=== PATIENT | male | born 1940 | race Caucasian/White ===

== ENCOUNTER 2017-08-05 05:38 | Day surgery (SDC) | payer MEDICARE, OTHER ==
[2017-08-05 08:26] LABS: Color Of CSF Supernatant COLORLESS (Colorless); Tube # 2; Unspun CSF Color COLORLESS (Colorless)
[2017-08-05 08:33] LABS: CSF Source CSF; Clarity Clear (Clear); RBC Count - Manual 1 /cumm (None Seen); Tube # 4; WBC/NonHematics Count - Manual 1 /cumm (0-5)
[2017-08-05 08:43] LABS: CSF, Glucose 63 mg/dl (40-70); CSF, Protein 33 mg/dL (15-40)
--- NOTE | 2017-08-05 08:52 | OP ---
DATE OF PROCEDURE: 08/05/2017 ATTENDING PHYSICIAN: Dr. Garrett Rich PROCEDURE: Lumbar puncture with high volume tap. INDICATION: Hydrocephalus. ANESTHESIA: Local 1% lidocaine without epinephrine. PROCEDURE IN DETAIL: Informed consent was obtained for a lumbar puncture with high volume tap. The area was prepped and draped in usual sterile fashion. Using landmarks, an 18 gauge spinal needle was inserted in the L4-L5 interspace. The stylet was removed and clear CSF was visualized. 30 mL of CSF was removed. CSF was sent for routine studies. The patient tolerated the procedure well. We will plan to evaluate for improvement in his gait and mentation in day stay. Please reach out to the Neurosurgery Service for additional questions or concerns. CHAPIN
--- NOTE | 2017-08-07 14:39 | HP ---
DATE OF SERVICE: 08/05/2017 ATTENDING PHYSICIAN: Dr. Garrett Rich. HISTORY OF PRESENT ILLNESS: Mr. Pollard is a 77-year-old male, who presented recently in our office for evaluation of hydrocephalus. Family reports that, over the past year, the patient has had progressively worsening cognitive decline, gait instability, and incontinence. He has been followin g with neurologist, who felt that his dementia was related to vascular disease. Further evaluation w as done with MRI, which was notable for enlarged ventricular system. Patient did have high volume ta p done, which the family reports resulted in significant improvement in his symptoms for approximatel y 1 week; however, the neurologist who evaluated following this time did not feel that patient was si gnificantly improved. Patient now was referred to us for a second opinion. REVIEW OF SYSTEMS: Per HPI. PAST MEDICAL HISTORY: Dementia, hypertension, hyperlipidemia, hydrocephalus SURGICAL HISTORY: The patient denies any prior surgical history. FAMILY HISTORY: Noncontributory. SOCIAL HISTORY: The patient is retired. He lives at home. He does not smoke, drink, or use any [place]. CURRENT MEDICATION LIST: Amantadine, citalopram, amlodipine, carvedilol, donepezil, ferrous sulfate, pravastatin, 81 mg aspirin, and Cerovite. ALLERGIES: Patient has no known drug allergies. PHYSICAL EXAMINATION: HEENT: Head normocephalic, atraumatic. ENT: Oral mucosa is pink, intact, and moist. Eyes: Extrao cular movements intact. Pupils are equal. NECK: Soft and supple. Range of motion is intact and nonpainful. No meningismus or nuchal rigidity . CARDIAC: Regular rate and rhythm. PULMONARY: The patient is breathing comfortably. No evidence of dyspnea. NEUROLOGIC: Patient is oriented to person and place. He is not oriented to time. He is tangential in his conversations and does not follow well. Patient is moving all fours. He does have difficulty following some commands. He is presently confused. EXTREMITIES: Upper extremity and lower extremities, no focal motor weakness is appreciated. Negativ e Malloy's, negative clonus. No reflex asymmetry. BACK: Nontender to palpation. Free active range of motion. ASSESSMENT: Hydrocephalus. PLAN: I have discussed the patient's presentation, exam findings, and imaging with Dr. Rich. He will also see the patient. We will plan to repeat high volume tap and assess for any improvement in the patient's current condition. This is plan for 08/05/2017.
== END 2017-08-05 12:35 | disposition home or self-care (01) ==
LOC: SDC 05:38
PROVIDERS: ATTEND Neurological Surgery
PROC: 009U3ZZ Drainage of Spinal Canal, Percutaneous Approach (ICD-10-PCS; principal; 2017-08-05)
DX: G91.9 Hydrocephalus, unspecified (principal)
CPT/HCPCS: 62272; 82945; 84157; 87070; 87205; 89051; 97116; 97139; G8978; G8979; G8980

== ENCOUNTER 2018-09-22 12:40 | Emergency (ER) | payer MEDICARE, OTHER ==
[2018-09-22 12:57] LABS: #Eosinphils 0.1 thou/uL (0.0-0.7); #Lymphocytes 2.5 thou/uL (1.20-3.40); #Monocytes 0.9 thou/uL (0.11-0.59); #Neutrophils 8.9 thou/uL (1.40-6.50); %Basophils 0.3 % (0.0-1.0); %Eosinophils 0.8 % (0.0-10.0); %Lymphocytes 20.2 % (21.0-51.0); %Monocytes 7.2 % (0.0-10.0); %Neutrophils 71.5 % (42.0-75.0); Hemoglobin 11.6 g/dL (14.0-18.0); Mean Corpuscular HGB CONC 32.8 g/dL (32.0-36.0); Mean Corpuscular Volume 91.6 fL (78.0-98.0); Mean Platelet Volume 8.8 fL (7.4-10.4); Platelet Count 247 thou/uL (130-400); Red Blood Cell (RBC) Count 3.85 mill/uL (4.70-6.10); White Blood Cell (WBC) Count 12.4 thou/uL (4.8-10.8)
[2018-09-22 13:06] LABS: PTT 32.3 SEC (22.9-36.1); Prothrombin Time 13.3 SEC (12.0-14.7)
[2018-09-22 13:10] LABS: ALT (SGPT) 40 U/L (8-55); AST (SGOT) 30 U/L (5-34); Alkaline Phosphatase 89 U/L (40-150); Anion Gap 13 mmol/L (10-20); BUN (Urea Nitrogen) 29 mg/dL (8.4-25.7); Bilirubin, Total 0.5 mg/dL (0.2-1.2); CK (CPK) 521 U/L (30-200); Calc. Creatinine Clearance 0 mL/min (70-130); Calcium 9.7 mg/dL (7.8-10.44); Carbon Dioxide 27 mmol/L (23-31); Chloride 106 mmol/L (98-107); Estimated GFR-MDRD 39; Globulin 2.8 g/dL (2.4-3.5); Glucose 114 mg/dL (83-110); Potassium 4.3 mmol/L (3.5-5.1); Protein, Total 6.8 g/dL (5.8-8.1); Sodium 142 mmol/L (136-145)
[2018-09-22 13:35] LABS: Bilirubin Negative (Negative); Blood, Urine Negative (Negative); Clarity CLEAR (Clear); Glucose, Urine (Dipstick) Negative (Negative); Leukocyte Negative (Negative); Nitrite Negative (Negative); Protein, Urine (Dipstick) Negative (Neg-Trace); Specific Gravity, Urine 1.008 (1.002-1.036); Urobilinogen 0.2 mg/dL (0.2-1.0)
--- NOTE | 2018-09-22 14:19 | CT ---
CT OF THE BRAIN WITHOUT CONTRAST: Date: 09/22/18 INDICATION: Level I stroke for right-sided facial droop and fall. COMPARISON: None. FINDINGS: There is generalized cerebral and cerebellar atrophy with suspected ex vacuo dilatation of the ventri cles. There is moderate chronic small vessel white matter ischemic change. The septum pellucidum and third ventricle are midline. There is a right frontal scalp contusion. There is postsurgical change i nvolving ethmoid air cells and maxillary sinuses consistent with prior sinus surgery. IMPRESSION: 1. No acute intracranial abnormality. 2. Right frontal scalp contusion. 3. Generalized cerebral and cerebellar atrophy with moderate chronic small vessel white matter ische chula change. Findings called to Dr. Arevalo at 1250 hours on 09/22/18. CODE CR. POS: KEO
--- NOTE | 2018-09-22 14:21 | CT ---
CT CERVICAL SPINE WITHOUT CONTRAST: Date: 09/22/18 INDICATION: Stroke activation and fall with concern for neck injury and neck pain. FINDINGS: There is moderate multilevel spondylosis of the cervical spine. There is diffuse osteopenia. The osse ous central canal appears relatively well preserved. There is calcified granuloma in left upper lobe. No pneumothorax is evident. Prevertebral soft tissues reveal no definite acute injury. Craniocervica l junction appears within normal limits. IMPRESSION: No acute fracture or subluxation. POS: MILLIE
--- NOTE | 2018-09-22 14:23 | RAD ---
CHEST 1 VIEW: Date: 09/22/18 HISTORY: Altered mental status, stroke. FINDINGS: Monitor leads overlie the chest. Heart size is within normal limits. The lungs are clear. No confluen t pneumonia, overt edema, or pleural effusion. There is mild vascular congestion. IMPRESSION: Mild vascular congestion. No pneumonia, edema, pleural effusion, or other acute intrathoracic disease . Atherosclerosis of aorta. POS: TPC
--- NOTE | 2018-09-27 17:13 | EKG ---
Test Reason : Blood Pressure : / mmHG Vent. Rate : 072 BPM Atrial Rate : 072 BPM P-R Int : 156 ms QRS Dur : 084 ms QT Int : 422 ms P-R-T Axes : 056 -03 073 degrees QTc Int : 462 ms Normal sinus rhythm Cannot rule out Inferior infarct , age undetermined Abnormal ECG Confirmed by NICOLE SULLIVAN, CHICO ([id number]), desk editor TONE MCDONOUGH ([id number]) on 09/27/2018 5:12:52 PM Referred By: Confirmed By:CHICO RIVERA MD
== END 2018-09-22 15:40 | disposition home or self-care (01) ==
LOC: ERS 12:40
DX: S00.83XA Contusion of other part of head, initial encounter (principal); E78.5 Hyperlipidemia, unspecified; I10 Essential (primary) hypertension; F03.90 Unspecified dementia, unspecified severity, without behavioral disturbance, psychotic disturbance, mood disturbance, and anxiety; F41.9 Anxiety disorder, unspecified; F32.9 Major depressive disorder, single episode, unspecified; Z79.899 Other long term (current) drug therapy
CPT/HCPCS: 36416; 51701; 70450; 71045; 72125; 80053; 81003; 82550; 84484; 85025; 85610; 85730; 87086; 93005